=== PATIENT | male | born 1985 | race Caucasian/White ===

== ENCOUNTER 2023-10-26 09:30 | Emergency (ER) | payer MEDICAID ==
[~2023-10-26] VITALS: Ht 167.6 cm; Wt 68.0 kg
[2023-10-26 09:37] VITALS: O2SAT 98
[2023-10-26 10:20] LABS: BASOPHILS % 0.2 % (0.0-2.0); HEMATOCRIT. 40.2 % (42.0-52.0); HEMOGLOBIN. 13.4 g/dL (14.0-18.0); LYMPHOCYTES % 9.6 % (20.0-50.0); MEAN CORPUSCULAR HEMOGLOBIN 27.8 pg (28.0-32.0); MEAN CORPUSCULAR HGB CONC 33.4 g/dL (31.0-37.0); MEAN CORPUSCULAR VOLUME 83.3 fL (80.0-94.0); MEAN PLATELET VOLUME 7.2 fl (7.4-10.4); MONOCYTES % 11.3 % (2.0-8.0); NEUTROPHILS % 78.9 % (40.0-76.0); PLATELET 399 x1000/uL (130-400); RED BLOOD CELL COUNT 4.83 mill/uL (4.7-6.1); RED CELL DISTRIBUTION WIDTH 14.5 % (11.6-14.6); WHITE BLOOD COUNT 14.6 x1000/uL (4.5-11.0)
[2023-10-26 10:33] LABS: PROTHROMBIN TIME 11.4 sec (9.6-11.0)
[2023-10-26] MEDS: ACETAMINOPHEN WITH CODEINE 300/30MG TABLET PO ONE (10:38)
[2023-10-26 11:01] LABS: ALANINE AMINOTRANSFERASE 15 IU/L (10-49); ALBUMIN 5.2 g/dL (3.2-4.8); ASPARTATE AMINOTRANSFERASE 13 IU/L (<34); BILIRUBIN TOTAL 0.8 mg/dL (0.1-1.0); CALCIUM 9.7 mg/dL (8.7-10.4); CARBON DIOXIDE 22 mEq/L (21-32); CHLORIDE 101 mEq/L (98-107); GLUCOSE 112 mg/dL (70-105); POTASSIUM 3.8 mEq/L (3.5-5.1); PROTEIN TOTAL 9.6 g/dL (6.0-8.3); SODIUM 135 mEq/L (136-145); UREA NITROGEN BLOOD 13 mg/dL (9-23)
[2023-10-26] MEDS ORDERED: TOPUD PO (11:27)
[2023-10-26 11:57] VITALS: BP 155/94; PULSE 98; RESP 16; TEMP 98.6
== END 2023-10-26 12:12 | disposition home or self-care (01) ==
LOC: ER 09:30
DX: M79.672 Pain in left foot (principal); M79.671 Pain in right foot
CPT/HCPCS: 36415; 73620; 80053; 85025; 86850; 86900; 93922; 93971; 99284